=== PATIENT | male | born 1995 | race Caucasian/White ===

== ENCOUNTER 2016-07-19 16:25 | Emergency (ER) | payer SELFPAY ==
[2016-07-19 15:37] LABS: INFLUENZA A NEG (NEG); INFLUENZA B NEG (NEG)
== END 2016-07-19 16:30 | disposition home or self-care (01) ==
LOC: CFTX 16:25
PROVIDERS: Nurse Practitioner
DX: J02.0 Streptococcal pharyngitis (principal); F17.200 Nicotine dependence, unspecified, uncomplicated
CPT/HCPCS: 87651; 87804; 99283

== ENCOUNTER → 2016-07-24 13:40 | Emergency (ER) | payer SELFPAY | END | disposition home or self-care (01) | LOC: CFTX 13:40 | DX: J02.9 Acute pharyngitis, unspecified (principal) | CPT/HCPCS: 99282 ==

== ENCOUNTER 2016-10-31 13:09 | Emergency (ER) | payer SELFPAY | END 2016-10-31 13:36 | disposition home or self-care (01) | LOC: CFTX 13:09 → CED 13:09 → CFTX 13:33 | DX: J02.0 Streptococcal pharyngitis (principal); F17.200 Nicotine dependence, unspecified, uncomplicated | CPT/HCPCS: 99282; J1100 ==